=== PATIENT | female | born 1945 | race Caucasian/White ===

== ENCOUNTER 2020-01-15 23:30 | Inpatient (IN) | payer OTHER ==
[~2020-01-15] VITALS: Ht 167.6 cm; Wt 42.7 kg
[2020-01-16 00:25] LABS: Hemoglobin 7.9 g/dL (12.2-16.2)
[2020-01-16 00:27] LABS: Hematocrit 25.4 % (36.0-46.0); Mean Corpuscular Hgb Conc. 31.1 g/dL (32.0-36.0); Mean Corpuscular Volume 64.1 fL (80.0-100.0); Platelet Count (auto) 205 10^3/uL (140-450); Red Blood Cells 3.95 10^6/uL (4.0-5.20)
[2020-01-16 00:33] LABS: Basophils % (manual) 0 (0.0-2.0); Blast Cells 0; Metamyelocytes % 0; Myelocytes % 0; Promyelocytes % 0; Red Cell Distribution Width 20.4 % (11.8-14.3)
[2020-01-16 00:43] LABS: Albumin 1.8 g/dL (3.4-5.0); BUN/Creatinine Ratio 25.4; Calcium 7.8 mg/dL (8.5-10.1); Potassium 5.1 mmol/L (3.5-5.1)
[2020-01-16 00:47] LABS: Bilirubin, Total 0.2 mg/dL (0.2-1.0); Total Protein 10.5 g/dL (6.4-8.2)
[2020-01-16 00:53] LABS: INR 1.08 (0.9-1.15); Partial Thromboplastin Time 31.2 sec (23.64-32.05)
[2020-01-16] MEDS ORDERED: methylPREDNISolone SOD SUCC 125 MG/2 ML VL IV ONE (01:15)
[2020-01-16 01:46] LABS: Eosinophils % (manual) 1 (0-7); Monocytes % (manual) 5 (0-12); Reactive Lymphocytes 1
[2020-01-16 01:47] LABS: Band Neutrophils % (manual) 10; Lymphocytes % (manual) 45 (10.0-50.0)
[2020-01-16] MEDS ORDERED: ONDANSETRON HCL 4 MG/2 ML VIAL IV PRN (03:30)
[2020-01-16] MEDS ORDERED: ALBUTEROL SULF 2.5 MG/0.5ML(0.5%) NEB SOLN NEB PRN (03:30)
[2020-01-16] MEDS ORDERED: SODIUM CHLORIDE 0.9% 1,000 ML IV SCH (03:30)
[2020-01-16] MEDS ORDERED: ACETAMINOPHEN 500 MG TAB PO PRN (03:30)
[2020-01-16] MEDS ORDERED: cloNIDine HCL 0.1 MG TAB PO PRN (03:30)
[2020-01-16] MEDS ORDERED: MORPHINE SULF INJ 2 MG/ML SYRINGE 1ML IV PRN ×2 (03:30)
[2020-01-16] MEDS ORDERED: IPRATROPIUM BROM 0.5 MG/2.5ML INH SOL NEB PRN (03:30)
[2020-01-16] MEDS ORDERED: NITROGLYCERIN 0.4 MG SL TAB SL PRN (03:30)
[2020-01-16 04:03] VITALS: BP 115/83
[2020-01-16] MEDS ORDERED: ALBUTEROL SULF HFA 90MCG INH 200DOSE IN SCH (06:00)
[2020-01-16] MEDS ORDERED: DOXYCYCLINE 100MG/250ML 250 ML IV SCH (10:00)
[2020-01-16] MEDS ORDERED: ASCORBIC ACID 1,000 MG TAB PO SCH (10:00)
[2020-01-16] MEDS ORDERED: methylPREDNISolone SOD SUCC 125 MG/2 ML VL IV SCH (10:00)
[2020-01-16] MEDS ORDERED: ZINC SULFATE 220mg CAP or TAB PO SCH (10:00)
[2020-01-16] MEDS ORDERED: CHOLECALCIFEROL (VITD3) 1,000UNIT=25mCg TAB PO SCH (10:00)
[2020-01-16] MEDS ORDERED: FUROSEMIDE 20 MG TAB PO ONE (10:15)
[2020-01-16] MEDS ORDERED: CARVEDILOL 3.125 MG TAB PO ONE (10:15)
[2020-01-16] MEDS: ENOXAPARIN SOD 40 MG/0.4 ML SYRINGE SC SCH (10:22)
--- NOTE | 2020-01-16 10:44 | NUR ---
Telemetry admit from ER MEGAN PORTILLO admitted to Telemetry unit after SBAR received. Patient oriented to AISHA MARTINEZ RN primary RN, unit, room, bed, and unit policies regarding patient care and visiting hours. Patient now on continuous telemetry monitoring, tele box # 20 and telemetry reading on arrival to unit is SR. Patient placed on bedside oxygen, weighed by bedscale and encouraged to call if they need something. All questions and concerns addressed, patient verbalized understanding.
[2020-01-16 10:53] LABS: Magnesium 2.4 mg/dL (1.6-2.6)
[2020-01-16 10:58] LABS: Cholesterol 98 mg/dL (< 200); HDL Cholesterol 27 mg/dL (40-59); LDL Cholesterol 67 mg/dL (< 100); Triglycerides 62 mg/dL (< 150)
--- NOTE | 2020-01-16 11:27 | NUR ---
SUNSHINE BYERS RE:TROPONIN [phone] [id number] TO ANNA GRE[facility] IS TO [facility].
--- NOTE | 2020-01-16 11:58 | NUR ---
[place] MD PACE THIS PATIENT IS A HERR PATIENT AND NOT JEANETTE. ACCORDING TO KATELYNN WE WILL RULE OUT COVID FIRST. IF COVID IS NEGATIVE PATIENT WILL HAVE A STRESS TEST TODAY.
[2020-01-16 12:00] VITALS: BP 108/71
[2020-01-16] MEDS ORDERED: cefTRIAXone 1GM/50ML D5W 50 ML IV ONE (14:45)
[2020-01-16] MEDS ORDERED: ACETAMINOPHEN 325 MG TAB PO PRN (14:45)
--- NOTE | 2020-01-16 15:06 | NUR ---
FAMILY CALLED PER DAUGHTER IN-LAW TIMMY, WHOM IS THE PATIENTS [place] HISTORY PROFESSOR, PATIENTS SON TWO MONTHS AGO AND TIMMY IS NOW HAVING TO START A GLOVE TURNER JOB AND IS NOW UNABLE TO TAKE CARE OF THE PATIENT AT HOME.
--- NOTE | 2020-01-16 15:10 | NUR ---
PT TRANSFERRED TO ROOM 215 REPORT GIVEN TO CHRIS GREENFIELD. PT TRANSFERRED ON PORTABLE 02 3LNC, ON A WHEELCHAIR. NO S/S OF DISTRESS NOTED AT TIME OF DEPARTURE.
--- NOTE | 2020-01-16 15:13 | NUR ---
PATIENT ARRIVED ON MS/TELE UNIT. DR. COOK AT BEDSIDE. PATIENT CONNECTED TO 3LNC. ABLE TO AMBULATE TO THE BED WITH MINIMAL ASSIST. ORIENTED TO THE UNIT, CALL LIGHT, AND THIS RN. FALL PRECAUTIONS IN PLACE. WILL CONTINUE TO MONITOR.
[2020-01-16] MEDS ORDERED: AZITHROMYCIN 500MG/ 250ML 250 ML IV ONE (15:45)
[2020-01-16 16:35] VITALS: BP 117/65
[2020-01-16 16:42] LABS: Free T4 (Free Thyroxine) 0.69 ng/dL (0.89-1.76)
[2020-01-16 16:43] LABS: Free T3 1.45 pg/mL (2.3-4.2)
[2020-01-16] MEDS: FUROSEMIDE 40 MG/4 ML VIAL IV SCH (17:56)
[2020-01-16] MEDS ORDERED: FUROSEMIDE 20 MG TAB PO SCH (18:00)
--- NOTE | 2020-01-16 18:50 | NUR ---
RT AT BEDSIDE.
[2020-01-16] MEDS: ALBUTEROL SULF 2.5 MG/0.5ML(0.5%) NEB SOLN NEB SCH ×2 (18:52→22:14)
[2020-01-16] MEDS: BUDESONIDE (INHALATION) 0.5 MG/2 ML NEB NEB SCH (18:53)
[2020-01-16] MEDS: IPRATROPIUM BROM 0.5 MG/2.5ML INH SOL NEB SCH ×2 (18:54→22:14)
--- NOTE | 2020-01-16 19:00 | NUR ---
CARE ENDORSED TO HUNG GREENFIELD.
[2020-01-16 21:30] VITALS: BP 93/51
[2020-01-16] MEDS ORDERED: ATOR40TA52 PO (21:36)
[2020-01-16] MEDS ORDERED: LEVO88TA4 PO (21:44)
[2020-01-16] MEDS ORDERED: POTA10TA51 PO (21:44)
[2020-01-16] MEDS ORDERED: FURO1TAB31 PO (21:44)
[2020-01-16] MEDS: METOPROLOL TARTRATE 25 MG TAB PO SCH (21:47)
[2020-01-16] MEDS: ATORVASTATIN 20 MG TAB PO SCH (21:51)
[2020-01-16] MEDS: methylPREDNISolone SOD SUCC 40 MG/ML VL IV SCH (21:51)
[2020-01-16] MEDS: DOCUSATE SOD 100 MG CAP PO PRN (21:52)
[2020-01-16] MEDS: HYDROcodone-ACET 5/325MG TAB PO PRN (21:52)
[2020-01-16] MEDS ORDERED: CARVEDILOL 3.125 MG TAB PO SCH (22:00)
--- NOTE | 2020-01-16 23:40 | NUR ---
PATIENT HAS DIFFICULTY SLEEPING AND REQUESTING BENADRYL TO HELP HER SLEEP. PAGED HOSPITALIST FOR ORDERS. AWAITING CALL BACK. Addendum: 01/17/20 at 0052 by HUNG MCDONNELL RN RN RECEIVED ORDER FOR RESTORIL 15MG PO X1 NATE.
[2020-01-17] MEDS ORDERED: TEMAZEPAM 15 MG CAP PO ONE (00:45)
[2020-01-17] MEDS: IPRATROPIUM BROM 0.5 MG/2.5ML INH SOL NEB SCH ×7 (02:57→21:50)
[2020-01-17] MEDS: ALBUTEROL SULF 2.5 MG/0.5ML(0.5%) NEB SOLN NEB SCH ×7 (02:57→21:50)
[2020-01-17 05:00] VITALS: BP 133/74
[2020-01-17] MEDS: FUROSEMIDE 40 MG/4 ML VIAL IV SCH (05:29)
[2020-01-17] MEDS: methylPREDNISolone SOD SUCC 40 MG/ML VL IV SCH ×3 (05:29→22:15)
[2020-01-17 05:46] LABS: Hemoglobin 7.3 g/dL (12.2-16.2); White Blood Cell 3.5 10^3/uL (4.4-10.8)
[2020-01-17 05:49] LABS: Hematocrit 22.5 % (36.0-46.0); Mean Corpuscular Hemoglobin 20.4 pg (28.0-32.0); Mean Corpuscular Hgb Conc. 32.2 g/dL (32.0-36.0); Mean Corpuscular Volume 63.1 fL (80.0-100.0); Platelet Count (auto) 184 10^3/uL (140-450); Red Blood Cells 3.57 10^6/uL (4.0-5.20); Red Cell Distribution Width 19.6 % (11.8-14.3)
[2020-01-17 06:05] LABS: Potassium 4.1 mmol/L (3.5-5.1)
[2020-01-17 06:18] LABS: BUN/Creatinine Ratio 32.6; Calcium 7.9 mg/dL (8.5-10.1)
[2020-01-17 06:20] LABS: Basophils % (auto) 0.1 % (0.0-2.0); Eosinophils % (auto) 0.1 % (0.0-7.0); Lymphocytes # (auto) 0.9 10 ^3/uL (0.4-5.4); Lymphocytes % (auto) 26.9 % (10.0-50.0); Monocytes # (auto) 0.1 10 ^3/uL (0-1.3); Monocytes % (auto) 2.2 % (0.0-12.0); Neutrophils # (auto) 2.5 10 ^3/uL (1.6-8.6); Neutrophils % (auto) 70.7 % (37.0-80.0); Nucleated Red Blood Cells % 0.2 %
[2020-01-17 06:21] LABS: Basophils # (auto) 0 10 ^3/uL (0-0.2); Eosinophils # (auto) 0 10 ^3/uL (0-0.8)
--- NOTE | 2020-01-17 07:39 | NUR ---
OPENING SHIFT NOTE: PATIENT RESTING IN BED, ASLEEP EASILY AWOKEN. PATIENT DENIES ANY PAIN AT THIS TIME. UPDATED ON PLAN OF CARE. ADDRESSED CONCERNS. CALL LIGHT PLACED WITHIN REACH, FALL PRECAUTIONS IN PLACE. WILL CONTINUE TO MONITOR.
[2020-01-17] MEDS ORDERED: ADENOSINE 38 MG in GIVE UN-DILUTED 0 ML IV STA (08:06)
[2020-01-17 08:20] VITALS: BP 114/70
[2020-01-17] MEDS: cefTRIAXone 1GM/50ML D5W 50 ML IV SCH (09:40)
--- NOTE | 2020-01-17 10:27 | NUR ---
PATIENT BACK IN ROOM FROM STRESS LAB. BREAKFAST TRAY GIVEN.
[2020-01-17] MEDS: METOPROLOL TARTRATE 25 MG TAB PO SCH ×2 (10:48→22:15)
[2020-01-17] MEDS: LEVOTHYROXINE SODIUM 100 MCG/5 ML INJ IV SCH (10:48)
[2020-01-17] MEDS: ENOXAPARIN SOD 40 MG/0.4 ML SYRINGE SC SCH (10:49)
[2020-01-17] MEDS: AZITHROMYCIN 500MG/ 250ML 250 ML IV SCH (10:49)
--- NOTE | 2020-01-17 10:50 | NUR ---
Respiratory note: PT REFUSED CHEDULE [place] TX AT THIS TIME. PT STATED SHE JUST HAD ONE AT 0600 AND DIDN'T NEED ONE RIGHT NOW. PT WANTED TO CONTINUE EATING AND SAID SHE WILL TAKE THE NEST ONE. NO SOB OR DISTRESS NOTED.
[2020-01-17] MEDS: BUDESONIDE (INHALATION) 0.5 MG/2 ML NEB NEB SCH ×2 (11:02→21:50)
[2020-01-17 12:30] VITALS: BP 98/60
--- NOTE | 2020-01-17 14:00 | NUR ---
DR. COOK AT BEDSIDE. DISCUSSED PLAN OF CARE WITH DAUGHTER VIA TELEPHONE. PLAN TO TRANSFER TO [place].
[2020-01-17 17:00] VITALS: BP 132/75
--- NOTE | 2020-01-17 18:54 | NUR ---
CARE ENDORSED TO HUNG GREENFIELD.
[2020-01-17] MEDS ORDERED: DIPH25CA66 PO (22:07)
[2020-01-17] MEDS: ATORVASTATIN 20 MG TAB PO SCH (22:15)
[2020-01-17] MEDS: HYDROcodone-ACET 5/325MG TAB PO PRN (22:16)
[2020-01-17] MEDS: DOCUSATE SOD 100 MG CAP PO PRN (22:16)
[2020-01-17 22:27] VITALS: BP 109/84
[2020-01-18] MEDS: ALBUTEROL SULF 2.5 MG/0.5ML(0.5%) NEB SOLN NEB SCH ×5 (01:55→19:00)
[2020-01-18] MEDS: IPRATROPIUM BROM 0.5 MG/2.5ML INH SOL NEB SCH ×5 (01:55→19:01)
[2020-01-18 05:01] VITALS: BP 141/79
[2020-01-18] MEDS: methylPREDNISolone SOD SUCC 40 MG/ML VL IV SCH ×2 (05:05→13:59)
[2020-01-18] MEDS: BUDESONIDE (INHALATION) 0.5 MG/2 ML NEB NEB SCH ×2 (06:41→19:01)
[2020-01-18 09:00] VITALS: BP 119/63
[2020-01-18] MEDS: cefTRIAXone 1GM/50ML D5W 50 ML IV SCH (09:57)
[2020-01-18] MEDS: LEVOTHYROXINE SODIUM 100 MCG/5 ML INJ IV SCH (09:59)
[2020-01-18] MEDS: ENOXAPARIN SOD 40 MG/0.4 ML SYRINGE SC SCH (10:00)
[2020-01-18] MEDS: METOPROLOL TARTRATE 25 MG TAB PO SCH (10:01)
[2020-01-18] MEDS: AZITHROMYCIN 500MG/ 250ML 250 ML IV SCH (11:12)
[2020-01-18 12:57] VITALS: BP 122/66
--- NOTE | 2020-01-18 15:00 | NUR ---
RECEIVED PHONE CALL FROM YUSUF WITH [facility] PER YUSUF THEY ARE WORKING ON A ACCEPTING MD AND GETTING A BED AVAILABLE. SHE WILL CALL ME BACK WITH TRANSPORTATION TIME AND LOCATION OF [facility].
--- NOTE | 2020-01-18 15:09 | NUR ---
I faxed to [facility] both the transfer order written today as well as the transfer order written yesterday, progress notes dated 01/18/20, transfer summary note, results of COVID 19 test, most current labs which were dated 01/17/20 and the notice regarding Post Stabilization. I contacted [facility] and spoke with Elio who stated that all faxed information had been received. I also informed Elio that the request for authorization for this patient had been denied yesterday even though the transfer order was faxed to [facility] yesterday and Ramona acknowledged receipt of all faxed information. Elio stated that he would submit a note to the corrections caseworker on my behalf requesting review all notes from previous and to recede denial of patients inpatient stay for 01/17/2020. Elio did inform me that patient would be transferring to [facility] in [place] when bed became available. I informed Elio that I would be available until 1630 and there would be someone emergency response officer by pager until 1900. If a message was left on the phone after 1900 it would not be answered until the next day. Elio acknowledged understanding of all information provided.
--- NOTE | 2020-01-18 16:26 | NUR ---
assessment Patient is a 74 year old female who is forgetful. Per patients daughter in law Mary prior to admission patient lived home with her and functioned with her assistance. Per Mary patients son 2 months ago and she has been caring for patient. Mary informed me patient has a wheelchair, 02, fww and bedside commode for home use. Per Mary she is looking for placement for patient. Patient has 1,159.00 per month. Patients PCP is Dr Jameson. I informed Mary patient has an order for transfer to [place]. Mary agrees to transfer. I informed Mary if for some reason patient does not go we will look for placement for patient Mary agrees. Mary verbalized understanding and agrees to discharge plan of transfer. Addendum: 01/18/20 at 1630 by Carolyn RODRIGUEZ Amended: Links added.
[2020-01-18 17:00] VITALS: BP 142/74
--- NOTE | 2020-01-18 17:05 | NUR ---
[facility] RECEIVED PHONE CALL FROM EDWARDO WITH [facility]. PATIENT WILL BE GOING TO [facility] IN [place]. [address] [facility] [place] [address] PER EDWARDO PATIENT ACCEPTING MD IS DOCTOR [facility]LS[facility] AND ROOM IS 308. REPORT TO BE CALLED IN [phone].
--- NOTE | 2020-01-18 17:09 | NUR ---
CALLED PATIENTS NEXT OF KIN/ CERTIFIED JUVENILE PROBATION OFFICER TIMMY (DAUGHTER IN LAW). NO ANSWER AND MAILBOX HAS NOT BEEN SET UP YET. WILL CALL BACK AGAIN.
--- NOTE | 2020-01-18 17:33 | NUR ---
SPOKE WITH PATIENTS DAUGHTER TIMMY. SHE IS INFORMED THAT PATIENT IS TO BE TRANSFERRED TO [facility] ROOM 308 AND WILL BE PICKED UP AT 1930 TODAY.
--- NOTE | 2020-01-18 18:25 | NUR ---
SBAR GIVEN TO MINGO GREENFIELD AT [place]. ALL QUESTIONS AND CONCERNS ADDRESSED. PATIENTS LAST SET OF V/S 95% ON 3LNC, 73HR 137/74 B/P 18 RR TEMP 97.4.
--- NOTE | 2020-01-18 19:05 | NUR ---
RT NOTE PT WAS SEEN BY RT FOR HHN TX. PT TOLERATES WELL VIA MASK. NO ADVERSE REACTION NOTED. CONT ORDERED Addendum: 01/18/20 at 1905 by Shanna Guevara RT Amended: Links added.
--- NOTE | 2020-01-18 20:18 | NUR ---
DISCHARGE PATIENT HAS ORDERS TO TRANSFER TO [facility]. PATIENT HAS IV ACCESS 22RFA AND 20LFA PATENT AND INTACT, AND ALSO HAS MCCLELLAND DRAINING CLEAR YELLOW URINE TO GRAVITY. PATIENT HAS NO BELONGINGS AT BEDSIDE AND WAS SENT HOME. PATIENT SKIN PICTURES TO SACRUM TAKEN. TRANSFER PACKETS GIVEN TO [facility] STAFF. PATIENT ON ACLS AND ON O2 3LNC. PATIENT LEFT VIA SARAI @ 2009.
[2020-01-19] MEDS ORDERED: AZITHROMYCIN 250 MG TAB PO SCH (10:00)
== END 2020-01-18 20:10 | disposition short-term general hospital (02) | DRG 280 ==
LOC: EDBD 23:30 → ER 23:35 → TELE 23:36 → TELE-E-ADS 01-16 11:34 → TELE-CENTR 01-16 15:01
PROVIDERS: ADMIT Hospitalist; ATTEND Internal Medicine
DX: I13.0 Hypertensive heart and chronic kidney disease with heart failure and stage 1 through stage 4 chronic kidney disease, or unspecified chronic kidney disease (principal); I21.A1 Myocardial infarction type 2; E43 Unspecified severe protein-calorie malnutrition; J96.20 Acute and chronic respiratory failure, unspecified whether with hypoxia or hypercapnia; I50.33 Acute on chronic diastolic (congestive) heart failure; J44.1 Chronic obstructive pulmonary disease with (acute) exacerbation; J45.901 Unspecified asthma with (acute) exacerbation; E87.1 Hypo-osmolality and hyponatremia; L03.116 Cellulitis of left lower limb; Z68.1 Body mass index [BMI] 19.9 or less, adult; D63.8 Anemia in other chronic diseases classified elsewhere; D50.9 Iron deficiency anemia, unspecified; N18.3 Chronic kidney disease, stage 3 (moderate); E78.5 Hyperlipidemia, unspecified; E03.9 Hypothyroidism, unspecified; Z03.818 Encounter for observation for suspected exposure to other biological agents ruled out; Z87.891 Personal history of nicotine dependence
CPT/HCPCS: 36415; 51702; 71045; 78452; 80048; 80053; 80061; 82728; 83735; 83880; 84439; 84443; 84481; 84484; 85007; 85025; 85027; 85379; 85610; 85730; 87070; 87804; 87880; 93005; 93017; 93306; 94640; 96365; 96372; 96375; 96376; 97163; G0378; J0153; J0696; J3490